=== PATIENT | male | born 1985 | race African-American/Black ===

== ENCOUNTER 2017-05-26 19:35 | Emergency (ER) | payer SELFPAY ==
[~2017-05-26] VITALS: Ht 188 cm; Wt 106.6 kg
[2017-05-26 20:19] VITALS: BP 121/73
[2017-05-26] MEDS ORDERED: BENZ100C PO (21:04)
[2017-05-26] MEDS ORDERED: PROAIR RESPICL90 MCG IH (21:04)
--- NOTE | 2017-05-26 21:04 | PHYS DOC ---
Past Medical History Past Medical History: Hypertension Past Surgical History: Other Additional Past Surgical Histo: HAND/WRIST SURGEY Alcohol Use: Occasionally Drug Use: Marijuana Adult General Chief Complaint Chief Complaint: COUGH HPI HPI Patient is a 32 year old male with history of hypertension who presents today with a productive cough and a sore throat that began 3 days ago. Patient denies any fever. He has history of smoking. Review of Systems Review of Systems Constitutional: Denies fever or chills [] Eyes: Denies change in visual acuity, redness, or eye pain [] HENT: on or sore throat [] Respiratory: cough Cardiovascular: No additional information not addressed in HPI [] GI: Denies abdominal pain, nausea, vomiting, bloody stools or diarrhea [] : Denies dysuria or hematuria [] Musculoskeletal: Denies back pain or joint pain [] Integument: Denies rash or skin lesions [] Neurologic: Denies headache, focal weakness or sensory changes [] Endocrine: Denies polyuria or polydipsia [] Allergies Allergies Allergies Coded Allergies Type Severity Reaction Last Updated Verified No Known Drug Allergies 09/22/13 No Physical Exam Physical Exam Constitutional: Well developed, well nourished, no acute distress, non-toxic appearance. [] HENT: Normocephalic, atraumatic, bilateral external ears normal, oropharynx moist, no oral exudates, nose normal. [] Eyes: PERRLA, EOMI, conjunctiva normal, no discharge. [] Neck: Normal range of motion, no tenderness, supple, no stridor. [] Cardiovascular:Heart rate regular rhythm, no murmur [] Lungs & Thorax: Bilateral breath sounds clear to auscultation [] Abdomen: Bowel sounds normal, soft, no tenderness, no masses, no pulsatile masses. [] Skin: Warm, dry, no erythema, no rash. [] Back: No tenderness, no CVA tenderness. [] Extremities: No tenderness, no cyanosis, no clubbing, ROM intact, no edema. [] Neurologic: Alert and oriented X 3, normal motor function, normal sensory function, no focal deficits noted. [] Psychologic: Affect normal, judgement normal, mood normal. [] Current Patient Data Vital Signs Vital Signs Date Time Temp Pulse Resp B/P (MAP) Pulse Ox O2 Delivery O2 Flow Rate FiO2 05/26/17 20:19 98.4 84 18 94 Room Air 98.4 EKG EKG [] Radiology/Procedures Radiology/Procedures [] Course & Med Decision Making Course & Med Decision Making Pertinent Labs and Imaging studies reviewed. (See chart for details) Patient is in the ED with a cough and sore throat for 2-3 days. Symptoms are viral. Negative rapid strep. Encouraged to consider smoking cessation. Discharged with Tessalon Perles and albuterol inhaler. Follow-up with PCP in 1- 2 weeks. Jose Luis Disclaimer Jose Luis Disclaimer This electronic medical record was generated, in whole or in part, using a voice recognition dictation system. Departure Departure Impression: Primary Impression: Cough Additional Impressions: Pharyngitis, acute Smoking addiction Disposition: HOME, SELF-CARE Condition: STABLE Referrals: NO PCP (PCP) Follow-up with your doctor in 1-2 weeks Patient Instructions: Cough, Adult, [id number], Smoking Cessation, Viral Pharyngitis Additional Instructions: You were seen with a cough and a sore throat. Your symptoms are probably viral. Take the prescribed medicines as needed. Follow-up with your doctor in 1-2 weeks. Consider smoking cessation. Scripts Benzonatate (TESSALON PERLE) 100 Mg Capsule 1 CAP PO TID, #30 CAP Prov: GIO HAN APRN 05/26/17 Albuterol Sulfate (Proair Respiclick) 90 Mcg Aer.pow.ba 1 PUFF IH PRN Q6HRS Y for SHORTNESS OF BREATH, #1 INHALER Prov: GIO HAN APRN 05/26/17 Problem Qualifiers Additional Impressions: Pharyngitis, acute Pharyngitis/tonsillitis etiology: unspecified etiology Qualified Codes: J02.9 - Acute pharyngitis, unspecified GIO HAN APRN May 26, 2017 21:04
[2017-05-27 09:47] LABS: NEGATIVE OBC STREP NEG; POSITIVE OBC STREP POS
== END 2017-05-26 21:17 | disposition home or self-care (01) ==
LOC: ER 19:35
DX: J02.9 Acute pharyngitis, unspecified (principal); F17.200 Nicotine dependence, unspecified, uncomplicated; I10 Essential (primary) hypertension
CPT/HCPCS: 87070; 87880; 99283

== ENCOUNTER 2018-05-11 15:06 | Emergency (ER) | payer SELFPAY | END 2018-05-11 17:17 | disposition home or self-care (01) | LOC: ER 15:06 | DX: M75.42 Impingement syndrome of left shoulder (principal); I10 Essential (primary) hypertension; F17.200 Nicotine dependence, unspecified, uncomplicated | CPT/HCPCS: 99283 ==

== ENCOUNTER 2020-02-22 11:40 | Emergency (ER) | payer SELFPAY ==
[~2020-02-22] VITALS: Ht 190.5 cm; Wt 111.3 kg
[~2020-02-22 11:40] MED LIST: BENZ100C PO; MELO15TA23 PO; PROAIR RESPICL90 MCG IH; TRAM50TA PO
[2020-02-22 12:27] LABS: BASO # 0.1 x10^3/uL (0.0-0.2); BASO % 1 % (0-3); EOS # 0.3 x10^3/uL (0.0-0.7); EOS % 4 % (0-3); HEMATOCRIT 41.5 % (39.0-53.0); HEMOGLOBIN 14.1 g/dL (13.0-17.5); LYMPH # 2.4 x10^3/uL (1.0-4.8); LYMPH % 30 % (24-48); MEAN CORPUSCULAR HEMOGLOBIN 32 pg (25-35); MEAN CORPUSCULAR HGB CONC 34 g/dL (31-37); MEAN CORPUSCULAR VOLUME 94 fL (79-100); MONO # 0.6 x10^3/uL (0.0-1.1); MONO % 8 % (0-9); NEUT # 4.7 x10^3/uL (1.8-7.7); NEUT % 58 % (31-73); PLATELET COUNT 432 x10^3/uL (140-400); RED CELL DISTRIBUTION WIDTH 12.5 % (11.5-14.5); WHITE BLOOD COUNT 8.1 x10^3/uL (4.0-11.0)
[2020-02-22 12:32] LABS: CALCIUM 9.4 mg/dL (8.5-10.1); CREATININE 1.2 mg/dL (0.7-1.3); GFR 82.9; POTASSIUM 4.5 mmol/L (3.5-5.1)
--- NOTE | 2020-02-22 12:34 | EKG ---
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
[2020-02-22 12:37] LABS: ALBUMIN/GLOBULIN RATIO 1.1 (1.0-1.7); TOTAL BILIRUBIN 0.4 mg/dL (0.2-1.0); TOTAL PROTEIN 7.7 g/dL (6.4-8.2)
--- NOTE | 2020-02-22 12:37 | RAD ---
Single view of the chest. 02/22/2020 12:17 PM Indication: Chest pain Comparison: And Findings: There is no focal consolidation. There is no pleural effusion or pneumothorax. The cardiomediastinal silhouette and pulmonary vasculature are within normal limits. No acute osseous abnormalities are seen. Impression: No evidence of acute cardiopulmonary process. Electronically signed by: Emanuel Nickerson MD (02/22/2020 12:34 PM) [id number]
--- NOTE | 2020-02-22 13:55 | PHYS DOC ---
Past Medical History Past Medical History: No Pertinent History, Hypertension Past Surgical History: Other Additional Past Surgical Histo: HAND/WRIST SURGEY Smoking Status: Current Every Day Smoker Alcohol Use: Occasionally Drug Use: Marijuana General Adult EDM: Chief Complaint: HYPERTENSION HPI: HPI: 34-year-old male who denies any significant past medical history, takes no medications, smokes marijuana and tobacco daily, presents to the ED with complaints of constant left-sided " nagging, needle, sharp-like" chest pain for the past week stating " it feels like it's slipping a beat, i might have an arrhythmia." Patient states he went to [facility] today and saw his blood pressure systolic was 151 and that made him even more concerned. Denies any sympathomimetic use, no cocaine, no methamphetamines, no cocaine no [id number]-[id number] decongestants. FH ACS, no FH of sudden cardiac or connective tissue disorder. ROS: Denies any associated fever, chills, dyspnea, hemoptysis, nausea, vomiting, diarrhea, unilateral leg swelling, chest pressure heaviness tightness tearing or ripping, syncope, neck stiffness, headache, neurologic deficits, joint pain, rash. Review of Systems: Review of Systems: Constitutional: Denies fever or chills. [] Eyes: Denies change in visual acuity. [] HENT: Denies nasal congestion or sore throat. [] Respiratory: Denies cough or shortness of breath. [] Cardiovascular: Denies chest pain or edema. [] GI: Denies abdominal pain, nausea, vomiting, bloody stools or diarrhea. [] : Denies dysuria. [] Musculoskeletal: Denies back pain or joint pain. [] Integument: Denies rash. [] Neurologic: Denies headache, focal weakness or sensory changes. [] Endocrine: Denies polyuria or polydipsia. [] Lymphatic: Denies swollen glands. [] Psychiatric: Denies depression or anxiety. [] Heart Score: HEART Score for Chest Pain: HEART Score for Chest Pain Response (Comments) Value History Slighlty/Non-Suspicious 0 ECG Normal 0 Age < 45 0 Risk Factors 1 or 2 Risk Factors 1 Troponin < Normal Limit 0 Total 1 Risk Factors: Risk Factors: DM, Current or recent (<one month) smoker, HTN, HLP, family history of CAD, obesity. Risk Scores: Score 0 - 3: 2.5% MACE over next 6 weeks - Discharge Home Score 4 - 6: 20.3% MACE over next 6 weeks - Admit for Clinical Observation Score 7 - 10: 72.7% MACE over next 6 weeks - Early Invasive Strategies Allergies: Allergies: Allergies Coded Allergies Type Severity Reaction Last Updated Verified No Known Drug Allergies 09/22/13 No Physical Exam: PE: Constitutional: Well developed, well nourished, no acute distress, non-toxic appearance. [] HENT: Normocephalic, atraumatic, bilateral external ears normal, oropharynx moist, no oral exudates, nose normal. [] Eyes: PERRLA, EOMI, conjunctiva normal, no discharge. [] Neck: Normal range of motion, no tenderness, supple, no stridor. [] Cardiovascular:Heart rate regular rhythm, no murmur [] Lungs & Thorax: Bilateral breath sounds clear to auscultation [] Abdomen: Bowel sounds normal, soft, no tenderness, no masses, no pulsatile masses. [] Skin: Warm, dry, no erythema, no rash. [] Back: No tenderness, no CVA tenderness. [] Extremities: No tenderness, no cyanosis, no clubbing, ROM intact, no edema. [] Neurologic: Alert and oriented X 3, normal motor function, normal sensory function, no focal deficits noted. [] Psychologic: Affect normal, judgement normal, mood normal. [] Current Patient Data: Labs: Laboratory Tests Test 02/22/20 12:05 White Blood Count 8.1 x10^3/uL (4.0-11.0) Red Blood Count 4.40 x10^6/uL (4.30-5.70) Hemoglobin 14.1 g/dL (13.0-17.5) Hematocrit 41.5 % (39.0-53.0) Mean Corpuscular Volume 94 fL (79-100) Mean Corpuscular Hemoglobin 32 pg (25-35) Mean Corpuscular Hemoglobin Concent 34 g/dL (31-37) Red Cell Distribution Width 12.5 % (11.5-14.5) Platelet Count 432 x10^3/uL (140-400) H Neutrophils (%) (Auto) 58 % (31-73) Lymphocytes (%) (Auto) 30 % (24-48) Monocytes (%) (Auto) 8 % (0-9) Eosinophils (%) (Auto) 4 % (0-3) H Basophils (%) (Auto) 1 % (0-3) Neutrophils # (Auto) 4.7 x10^3/uL (1.8-7.7) Lymphocytes # (Auto) 2.4 x10^3/uL (1.0-4.8) Monocytes # (Auto) 0.6 x10^3/uL (0.0-1.1) Eosinophils # (Auto) 0.3 x10^3/uL (0.0-0.7) Basophils # (Auto) 0.1 x10^3/uL (0.0-0.2) Sodium Level 142 mmol/L (136-145) Potassium Level 4.5 mmol/L (3.5-5.1) Chloride Level 104 mmol/L (98-107) Carbon Dioxide Level 28 mmol/L (21-32) Anion Gap 10 (6-14) Blood Urea Nitrogen 12 mg/dL (8-26) Creatinine 1.2 mg/dL (0.7-1.3) Estimated GFR (Cockcroft-Gault) 82.9 BUN/Creatinine Ratio 10 (6-20) Glucose Level 90 mg/dL (70-99) Calcium Level 9.4 mg/dL (8.5-10.1) Total Bilirubin 0.4 mg/dL (0.2-1.0) Aspartate Amino Transferase (AST) 19 U/L (15-37) Alanine Aminotransferase (ALT) 25 U/L (16-63) Alkaline Phosphatase 61 U/L (46-116) Troponin I Quantitative < 0.017 ng/mL (0.000-0.055) Total Protein 7.7 g/dL (6.4-8.2) Albumin 4.0 g/dL (3.4-5.0) Albumin/Globulin Ratio 1.1 (1.0-1.7) Laboratory Tests 02/22/20 12:05 Laboratory Tests 02/22/20 12:05 Vital Signs: Vital Signs Date Time Temp Pulse Resp B/P (MAP) Pulse Ox O2 Delivery O2 Flow Rate FiO2 02/22/20 11:50 98.3 82 20 175/102 (126) 99 Room Air 98.3 EKG: EKG: Sinus rhythm at 77 bpm, no axis deviation, normal intervals, no T wave invers ions, no ST elevations or ST depressions Radiology/Procedures: Radiology/Procedures: IMAGING REPORT Signed PATIENT: WILLIE CARCAMO ACCOUNT: [id number] : 1985 LOCATION: ER AGE: 34 SEX: M EXAM STATUS: REG ER ORD. PHYSICIAN: SOURAV NULL DO REASON: cp PROCEDURE: CHEST AP ONLY Single view of the chest. 02/22/2020 12:17 PM Indication: Chest pain Comparison: And Findings: There is no focal consolidation. There is no pleural effusion or pneumothorax. The cardiomediastinal silhouette and pulmonary vasculature are within normal limits. No acute osseous abnormalities are seen. Impression: No evidence of acute cardiopulmonary process. Electronically signed by: Emanuel Candelaria MD (02/22/2020 12:34 PM) [id number] DICTATED and SIGNED BY: EMANUEL CANDELARIA MD DATE: 02/22/20 1234 Impression: Impression: Uncontrolled hypertension, now with no current chest pain. Labs including troponin, chest x-ray and EKG are unremarkable. Patient very well- appearing and no signs of distress. Is no fever or chills. Has no exertional symptoms or syncope. Low suspicion for life-threatening processes at this time although they were considered (ACS, ptx, PE, AAA, dissection, CVA). Encourage urgent PMD follow-up to start medications for blood pressure management. Strict ED return precautions were given for neurologic deficits, syncope or recurrent chest pain. All patient's questions were answered and he was stable at time of discharge. Course & Med Decision Making: Course & Med Decision Making Pertinent Labs and Imaging studies reviewed. (See chart for details) [] Dragon Disclaimer: Dragon Disclaimer: This electronic medical record was generated, in whole or in part, using a voice recognition dictation system. Departure Departure Impression: Primary Impression: Hypertension Additional Impression: Palpitations Disposition: 01 HOME, SELF-CARE Condition: STABLE Referrals: MALIK BRYAN MD (PCP) Patient Instructions: Hypertension, Palpitations SOURAV NULL DO February 22, 2020 13:55
[2020-02-22 13:58] VITALS: BP 150/96
== END 2020-02-22 14:05 | disposition home or self-care (01) ==
LOC: ER 11:40
DX: I10 Essential (primary) hypertension (principal); R07.89 Other chest pain; R20.0 Anesthesia of skin; F17.200 Nicotine dependence, unspecified, uncomplicated; F12.90 Cannabis use, unspecified, uncomplicated; Z98.890 Other specified postprocedural states
CPT/HCPCS: 36415; 71045; 80053; 84484; 85025; 93005; 99285

== ENCOUNTER 2020-03-31 14:11 | Emergency (ER) | payer SELFPAY ==
[~2020-03-31] VITALS: Ht 190.5 cm; Wt 111.9 kg
[2020-03-31 14:25] VITALS: BP 113/59
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
== END 2020-03-31 15:08 | disposition home or self-care (01) ==
LOC: ER 14:11
DX: F12.10 Cannabis abuse, uncomplicated (principal); R55 Syncope and collapse; I10 Essential (primary) hypertension; F17.200 Nicotine dependence, unspecified, uncomplicated; Z98.890 Other specified postprocedural states
CPT/HCPCS: 99281

== ENCOUNTER 2020-09-17 17:02 | Emergency (ER) | payer SELFPAY ==
[~2020-09-17] VITALS: Ht 190.5 cm; Wt 109.0 kg
[2020-09-17 17:41] VITALS: BP 144/91
--- NOTE | 2020-09-17 18:46 | RAD ---
Exam: Right wrist 3 views INDICATION: Pain after fall TECHNIQUE: Frontal, lateral and oblique views of the right wrist Comparisons: None FINDINGS: Bone mineralization is normal. No acute or healed fractures. Soft tissues are unremarkable. Joint spa farida are well-maintained. IMPRESSION: No acute osseous abnormality. If the patient is demonstrating snuffbox tenderness recommend splinting with repeat imaging in 5-7 days to rule out an occult scaphoid injury. Electronically signed by: Ifrah Oglesby MD (09/17/2020 6:44 PM) LIDYA
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
[2020-09-17] MEDS ORDERED: NAPROXEN 500 MG TABLET PO STA (19:57)
[2020-09-17] MEDS ORDERED: HYDROcodone/APAP 5/325MG 1 TAB TABLET PO ONE (20:00)
== END 2020-09-17 20:12 | disposition home or self-care (01) ==
LOC: ER 17:02
DX: S63.591A Other specified sprain of right wrist, initial encounter (principal); R20.2 Paresthesia of skin; I10 Essential (primary) hypertension; F17.200 Nicotine dependence, unspecified, uncomplicated; F12.90 Cannabis use, unspecified, uncomplicated; Z98.890 Other specified postprocedural states; W18.39XA Other fall on same level, initial encounter; Y93.89 Activity, other specified; Y92.89 Other specified places as the place of occurrence of the external cause; Y99.8 Other external cause status
CPT/HCPCS: 29125; 73110; 99283

== ENCOUNTER 2022-01-29 22:52 | Emergency (ER) | payer SELFPAY ==
[~2022-01-29] VITALS: Ht 190.5 cm; Wt 111.3 kg
[2022-01-29 23:37] VITALS: BP 157/91
[2022-01-30] MEDS ORDERED: KETOROLAC 30 MG/ML VIAL. IM ONE (00:30)
[2022-01-30] MEDS ORDERED: cefTRIAXone IM 500 MG VIAL. IM ONE (00:30)
[2022-01-30] MEDS ORDERED: DOXYCYCLINE HYCLATE 100 MG TABLET PO ONE (00:30)
--- NOTE | 2022-01-30 00:32 | PHYS DOC ---
Past Medical History Past Medical History: No Pertinent History, Hypertension Past Surgical History: No Surgical History Additional Past Surgical Histo: HAND/WRIST SURGEY Smoking Status: Current Every Day Smoker Alcohol Use: Occasionally Drug Use: Marijuana General Adult EDM: Chief Complaint: PAIN ON URINATION HPI: HPI: Patient is a 36 year old presents with dysuria and penile discharge that started approximately 1 week ago. Patient states that he had unprotected sex with a new partner. Review of Systems: Review of Systems: Constitutional: Denies fever or chills. [] Eyes: Denies change in visual acuity. [] HENT: Denies nasal congestion or sore throat. [] Respiratory: Denies cough or shortness of breath. [] Cardiovascular: Denies chest pain or edema. [] GI: Denies abdominal pain, nausea, vomiting, bloody stools or diarrhea. [] : Penile discharge and dysuria Musculoskeletal: Denies back pain or joint pain. [] Integument: Denies rash. [] Neurologic: Denies headache, focal weakness or sensory changes. [] Endocrine: Denies polyuria or polydipsia. [] Lymphatic: Denies swollen glands. [] Psychiatric: Denies depression or anxiety. [] Heart Score: C/O Chest Pain: No Risk Factors: Risk Factors: DM, Current or recent (<one month) smoker, HTN, HLP, family history of CAD, obesity. Risk Scores: Score 0 - 3: 2.5% MACE over next 6 weeks - Discharge Home Score 4 - 6: 20.3% MACE over next 6 weeks - Admit for Clinical Observation Score 7 - 10: 72.7% MACE over next 6 weeks - Early Invasive Strategies Current Medications: Current Medications Medications (Trade) Dose Ordered Sig/Gage Start Time Stop Time Status Last Admin Dose Admin Ceftriaxone Sodium (Rocephin Im) 500 mg 1X ONCE 01/30/22 00:30 01/30/22 00:31 Doxycycline Hyclate (Vibra-Tab) 100 mg 1X ONCE 01/30/22 00:30 01/30/22 00:31 Ketorolac Tromethamine (Toradol 30mg Vial) 30 mg 1X ONCE 01/30/22 00:30 01/30/22 00:31 Allergies: Allergies: Allergies Coded Allergies Type Severity Reaction Last Updated Verified No Known Drug Allergies 01/30/22 No Physical Exam: PE: Constitutional: Well developed, well nourished, no acute distress, non-toxic appearance. [] HENT: Normocephalic, atraumatic, bilateral external ears normal, oropharynx moist, no oral exudates, nose normal. [] Eyes: PERRLA, EOMI, conjunctiva normal, no discharge. [] Neck: Normal range of motion, no tenderness, supple, no stridor. [] Cardiovascular:Heart rate regular rhythm, no murmur [] Lungs & Thorax: Bilateral breath sounds clear to auscultation [] Abdomen: Bowel sounds normal, soft, no tenderness, no masses, no pulsatile masses. [] Skin: Warm, dry, no erythema, no rash. [] Back: No tenderness, no CVA tenderness. [] Extremities: No tenderness, no cyanosis, no clubbing, ROM intact, no edema. [] Neurologic: Alert and oriented X 3, normal motor function, normal sensory function, no focal deficits noted. [] Psychologic: Affect normal, judgement normal, mood normal. [] Current Patient Data: Vital Signs: Vital Signs Date Time Temp Pulse Resp B/P (MAP) Pulse Ox O2 Delivery O2 Flow Rate FiO2 01/29/22 23:37 98.2 77 20 157/91 (113) 100 98.2 EKG: EKG: [] Radiology/Procedures: Radiology/Procedures: [] Course & Med Decision Making: Course & Med Decision Making Pertinent Labs and Imaging studies reviewed. (See chart for details) [] STI counseling was given to the patient patient was treated tests were pending. Jose Luis Disclaimer: Jose Luis Disclaimer: This electronic medical record was generated, in whole or in part, using a voice recognition dictation system. Departure Departure Impression: Primary Impression: Urethritis Disposition: HOME / SELF CARE / HOMELESS Condition: STABLE Referrals: CHRISTO MARSHALL NP (PCP) CATHI PIMENTEL DO Jan 30, 2022 00:32
[2022-01-30 00:35] LABS: WBC,URINE TNTC /HPF (0-4)
[2022-01-30 00:36] LABS: BACTERIA,URINE FEW /HPF (0-FEW)
[2022-01-30] MEDS ORDERED: DOXY100C3 PO (01:17)
== END 2022-01-30 01:39 | disposition home or self-care (01) ==
LOC: ER 22:52
DX: N34.2 Other urethritis (principal); I10 Essential (primary) hypertension; F17.200 Nicotine dependence, unspecified, uncomplicated
CPT/HCPCS: 81001; 87491; 87591; 96372; 99284; J0696; J1885